=== PATIENT | female | born 1965 | race Caucasian/White ===

== ENCOUNTER 2022-09-14 11:46 | Outpatient (CLI) | payer BC, OTHER ==
[~2022-09-14] VITALS: Ht 172.7 cm; Wt 86.5 kg
[~2022-09-14 11:46] MED LIST changes: -BUPR300T98 PO; -HYDR-3817 PO; -VENL150C3 PO
[2022-09-15] MEDS ORDERED: VENL150C3 PO (12:32)
[2022-09-15] MEDS ORDERED: BUPR300T98 PO (12:32)
== END 2022-09-15 12:36 ==
LOC: PREOP 11:46
PROVIDERS: ATTEND Orthopaedic Surgery
DX: Z01.818 Encounter for other preprocedural examination (principal)

== ENCOUNTER → 2022-09-14 | Outpatient (CLI) | payer OTHER ==
[~2022-09-14] MED LIST: ACHD5005 PO; BUPR300T98 PO; HYDR-3817 PO; ONDA4TAB11 PO; VENL150C3 PO
== END ==
LOC: ORTHO 08:24
PROVIDERS: ATTEND Orthopaedic Surgery
DX: S52.531A Colles' fracture of right radius, initial encounter for closed fracture (principal); W10.9XXA Fall (on) (from) unspecified stairs and steps, initial encounter
CPT/HCPCS: 99203

== ENCOUNTER 2022-09-17 07:49 | Day surgery (SDC) | payer BC ==
[2022-09-17] VITALS (13 sets, daily range): BP systolic 90–152; BP diastolic 60–90
[~2022-09-17] VITALS: Ht 172.7 cm; Wt 86.5 kg
[~2022-09-17 07:49] MED LIST changes: +BUPR300T98 PO; +VENL150C3 PO
[2022-09-17] MEDS ORDERED: ceFAZolin INJECTION 2,000 MG in NS (IVPB) 50 ML 50 ML IV ONE (09:15)
[2022-09-17] MEDS ORDERED: LACTATED RINGERS 1,000 ML IV PRN (09:15)
[2022-09-17] MEDS ORDERED: proPOfol 200 MG/20 ML (DIPRIVAN) VIAL IV ONE (09:55)
[2022-09-17] MEDS ORDERED: ONDANSETRON 4 MG/2 ML (SDV) Z0FRAN ONE (09:55)
[2022-09-17] MEDS ORDERED: MIDAZOLAM 2 MG/2 ML (VERSED) VIAL ONE (09:55)
[2022-09-17] MEDS ORDERED: LIDOCAINE PF 2% 5 ML (XYLOCAINE) VIAL ONE (09:55)
[2022-09-17] MEDS ORDERED: fentaNYL INJ 100 MCG/2 ML AMP ONE (09:55)
[2022-09-17] MEDS ORDERED: dexAMETHasone INJ 10 MG/ML 1 ML VIAL ONE (09:55)
--- NOTE | 2022-09-17 09:55 | Progress Note-Pre Operative ---
Pre-Operative Progress Note Date of Available H&P: Sep 14, 2022 Date H&P Reviewed: Sep 17, 2022 Time H&P Reviewed: 09:40 History & Physical: H&P Reviewed, Patient Examed, No changes noted Pre-Operative Diagnosis: Right Distal Radius Fracture HEATHER PATEL MD Sep 17, 2022 09:55
[2022-09-17] MEDS ORDERED: BUPIVACAINE 0.25% 30 ML VIAL ONE (10:22)
[2022-09-17] MEDS ORDERED: NEO/POLY/BAC (NEOSPORIN) OINT 15 GM TUBE ONE (10:23)
[2022-09-17] MEDS ORDERED: BUPIVACAINE 0.25% 30 ML VIAL INJ ONE (11:10)
[2022-09-17] MEDS ORDERED: NEO/POLY/BAC (NEOSPORIN) OINT 15 GM TUBE TOP ONE (11:10)
[2022-09-17] MEDS ORDERED: SEVOFLURANE (ULTANE) 15 ML INHAL SOLN ONE (11:41)
--- NOTE | 2022-09-17 11:57 | Operative Report - Ortho ---
Operative Report Surgeon (s)/Science Faculty Member (s) Surgeon HEATHER PATEL MD Science Faculty Member n/a Pre-Operative Diagnosis Right Distal Radius Fracture Post-Operative Diagnosis same Operative Report Date of Procedure: Sep 17, 2022 Name of Procedure Performed: Open Reduction and Internal Fixation of Right Distal Radius Fracture Description & Findings After obtaining informed consent, the patient was taken to the operating room. General anesthesia was induced. Surgical timeout was taken. The right upper extremity was prepped and draped in the usual sterile fashion. Incision was made over the volar side of the wrist. Radial artery was identified and protected. Fascia was divided, retractors were placed, and the pronator was reflected. Fracture site was exposed. Fracture site was mobilized. Reduction maneuver was performed using traction, wrist flexion, and ulnar deviation. A [employer] distal radius plate was selected and position against the bone using C-ar m. A nonlocking screw was placed in the slot of the plate. A nonlocking screw was then placed in the most distal row of the plate. Plate position and reduction were confirmed in the AP and lateral planes. An ulnar sided locking screw was placed in the distal row followed by the ulnar sided locking screw in the 2nd row. Another distal row locking screw was placed. C-arm was once again utilized and noted to have good position of hardware with maintained reduction of fracture. 2 locking screws were then placed in the radial styloid position. 2 locking screws were placed in the diaphyseal portion of the plate. Images were obtained in the AP, and lateral and demonstrated adequate reduction of the fracture and appropriate position of the hardware. Final images were transferred to PACS. Wound was irrigated with normal saline. Subcutaneous layer was closed with 3-0 vicryl. Skin was closed with 4-0 nylon. Wound was injected locally with marcaine. Arm was dressed with antibiotic ointment, xeroform, 4x4s, webril, volar splint, and RENETTA wrap. Patient tolerated the procedure well and was stable to the recovery room. Anesthesia Type General Estimated Blood Loss minimal Specimen(s) collected/removed None HEATHER PATEL MD Sep 17, 2022 11:57
[2022-09-17] MEDS ORDERED: HYDR-3817 PO (11:59)
--- NOTE | 2022-09-17 12:01 | Anesthesia-General Post-Op ---
General Patient Condition Mental Status/LOC: Same as Preop Cardiovascular: Satisfactory Nausea/Vomiting: Absent Respiratory: Satisfactory Pain: Controlled Complications: Absent Post Op Complications Complications None Follow Up Care/Instructions Patient Instructions None needed. Anesthesia/Patient Condition Patient Condition Patient is doing well, no complaints, stable vital signs, no apparent adverse anesthesia problems. No complications reported per nursing. VALENTINA CARLIN CRNA Sep 17, 2022 12:01
[2022-09-17] MEDS ORDERED: HYDROmorphone 2 MG/ML VIAL (DILAUDID) ONE (12:04)
[2022-09-17] MEDS ORDERED: ONDANSETRON 4 MG/2 ML (SDV) Z0FRAN IVP PRN (12:15)
[2022-09-17] MEDS ORDERED: fentaNYL INJ 100 MCG/2 ML AMP IVP ONE (12:15)
[2022-09-17] MEDS ORDERED: HYDROmorphone 2 MG/ML VIAL (DILAUDID) IV ONE (12:15)
--- NOTE | 2022-09-17 14:54 | Diagnostic Imaging Report ---
INDICATION: Distal radial fracture 2 intraoperative views are obtained with the portable intensifier in surgery. 30.3 seconds of fluoroscopy time was used, 0.57 mGy of exposure. Intraoperative AP and lateral views demonstrate distal radial fracture in anatomic alignment with plate and screws in place. IMPRESSION: Well-aligned distal radial fracture status post ORIF. Dictated by: Dictated on workstation # [id number]
== END 2022-09-17 14:20 ==
LOC: SDC 07:49
PROVIDERS: ATTEND Orthopaedic Surgery
DX: S52.531A Colles' fracture of right radius, initial encounter for closed fracture (principal); W18.30XA Fall on same level, unspecified, initial encounter
CPT/HCPCS: 76000; 87081

== ENCOUNTER → 2022-09-29 | Outpatient (CLI) | payer BC ==
[~2022-09-29] MED LIST changes: +HYDR-3817 PO
== END ==
LOC: ORTHO 09:51
PROVIDERS: ATTEND Orthopaedic Surgery
DX: Z47.89 Encounter for other orthopedic aftercare (principal)

== ENCOUNTER → 2022-10-13 | Outpatient (CLI) | payer BC ==
--- NOTE | 2022-10-13 11:14 | Diagnostic Imaging Report ---
INDICATION: Fracture, followup post ORIF. TECHNIQUE: Three views of the right wrist at 10:09 AM. CORRELATION STUDY: 09/12/2022. FINDINGS: Plate and screws have been placed along the volar aspect of the distal radius. This transfixes a previously noted impacted intra-articular distal radius fracture. Fracture fragments are slightly impacted but otherwise near anatomic in alignment. Fracture lines remain present. Small bone fragment projects anterior to the distal plate. Distal ulna is intact. Soft tissue edema, particularly along the volar aspect of the wrist. IMPRESSION: Post ORIF right wrist. Alignment is improved post fixation. Fracture lines do remain present, incompletely healed. Dictated by: Dictated on workstation # [id number]
== END ==
LOC: ORTHO 09:56
PROVIDERS: ATTEND Orthopaedic Surgery
DX: S52.531A Colles' fracture of right radius, initial encounter for closed fracture (principal); X58.XXXA Exposure to other specified factors, initial encounter
CPT/HCPCS: 73110

== ENCOUNTER → 2022-12-15 | Outpatient (CLI) | payer BC ==
--- NOTE | 2022-12-15 13:34 | Diagnostic Imaging Report ---
Indication: Right wrist fracture, postop 3 views the right wrist are obtained. COMPARISON: 11/17/2022 Plate and screws are seen across distal radial fracture in stable anatomic alignment. There is further healing of the fracture site compared to the prior study. There is no new bony abnormality. There are underlying degenerative changes of 1st carpal metacarpal joint IMPRESSION: Stable alignment of distal radial fracture with further healing and hardware alignment is unchanged. Dictated by: Dictated on workstation # [id number]
== END ==
LOC: ORTHO 09:05
PROVIDERS: ATTEND Orthopaedic Surgery
DX: S52.501D Unspecified fracture of the lower end of right radius, subsequent encounter for closed fracture with routine healing (principal); X58.XXXD Exposure to other specified factors, subsequent encounter
CPT/HCPCS: 73110